=== PATIENT | female | born 1970 | race Caucasian/White ===

== ENCOUNTER 2018-04-30 00:04 | Emergency (ER) | payer OTHER, MEDICAID, SELFPAY ==
[2018-04-30 00:18] VITALS: BP 149/93; PULSE 84; RESP 15; TEMP 36.2; O2SAT 100; BMI 43.5
--- NOTE | 2018-04-30 01:01 | DI.RAD.S_ITS ---
PROCEDURE: XR WRIST RT MIN 3V INDICATIONS: Fall TECHNIQUE: 4 views of the wrist were acquired. COMPARISON: [facility] [place], CR, XR WRIST 3+ VIEWS RIGHT, 12/09/2017, 14:16. Merged With [facility], MR, WRIST WITH CONTRAST, 05/28/2017, 14:49. Merged With [facility], RF, WRIST INJECTION FOR MR/CT, 05/28/2017, 14:28. Merged With [facility], CR, WRIST MINIMUM 3 VIEWS RIGHT, 02/26/2017, 6:49. [facility] [place], CR, XR WRIST 3+ VIEWS RIGHT, 08/30/2017, 7:44. [facility] [place], CR, XR WRIST 3+ VIEWS RIGHT, 10/18/2017, 9:16. Merged With [facility], MR, WRIST WITH CONTRAST, 01/16/2018, 14:24. Merged With [facility], , WRIST INJECTION FOR MR/CT, 01/16/2018, 13:57. FINDINGS: Bones: There is lucency in the radial styloid, which was not visualized on the prior examinations suspicious for nondisplaced fracture. Ossicle adjacent to the ulnar styloid is likely sequelae of old injury. Postsurgical changes with surgical anchor screws in scaphoid and lunate. There is widening of scapholunate interval consistent with scapholunate ligament disrupted. No suspicious bony lesions. Scaphoid view: Scaphoid is deformed but unchanged on the last exam. Soft tissues: No suspicious soft tissue calcifications. IMPRESSION: 1. Possible nondisplaced fracture of the radial styloid with lucency which was not seen on prior examinations. 2. Widening of radiolunate interval consistent with ligamentous disruption. The patient had prior surgical intervention. 3. Chronic deformity of scaphoid. 4. An ossicle adjacent to the ulnar styloid, likely sequelae of old injury. Dictated by: Iona Morse M.D. on 04/30/2018 at 7:31 Approved by: Iona Morse M.D. on 04/30/2018 at 7:38
--- NOTE | 2018-04-30 01:55 | ED_ITS ---
HPI - Fall General Chief Complaint: Fall Stated Complaint: FALL, RIGHT ARM/SHOULDER/BACK INJ History of Present Illness HPI Narrative: HPI 47-year-old female presents for evaluation of distal right forearm/wrist pain that occurred when she slipped and fell striking her right hand/forearm. Patient had a mechanical fall onto water on the floor, patient notes that the Move the water dish causing spelling of water with her subsequent slip and fall. Denies head stike, LOC. Endorses mild gradual onset diffuse back discomfort that began 1+ hours after her fall. ROS with no recent constitutional symptoms. Exam Gen: Pleasant, nontoxic-appearing, resting comfortably. HEENT: NC, AT, PEERL, EOMI. Resp: Unlabored respirations with a normal work of breathing. Card: Extremities warm and well perfused. GI: Non-distended. : Deferred MSK: * Gen - No grossly visible deformities, strength and tone without visually appreciable deficit. * Back - no visible palpable abnormalities, no C, T, L spine tenderness to palpation. * Right Upper Extremity - Acromion, lateral scapula, and clavicle visually normal and non-tender to palpation, no acromioclavicular joint tenderness. Shoulder visually normal without palpable tenderness, effusion, fluctuance, or crepitus, normal warmth to touch, full functional range of motion on flexion, extension, abduction, adduction, internal, and external rotation, sensation intact to touch over the deltoid muscle. Upper arm visually normal without tenderness to palpation over the length of the humerus, all muscle compartments soft and non-tender to palpation, fluctuance or crepitus, normal warmth to touch. Elbow visually normal, without palpable tenderness, effusion, fluctuance , or crepitus, normal warmth to touch, full functional range of motion on flexion, extension, supination, and pronation. Forearm with well-healed prior surgical scars in the distal form, otherwise visually normal without tenderness to palpation over the length of the radius and ulna, all muscle compartments soft and non-tender to palpation, fluctuance or crepitus, normal warmth to touch. Wrist visually normal with snuff box sparing mild diffuse tenderness but without palpable abnormalities, no point tenderness on the Hamate, negative Hook of hamate pull test, no effusion, fluctuance, or crepitus, normal warmth to touch, full functional range of motion on flexion, extension, pronation, supination, or radial or ulnar deviation, 2+ radial pulse.Hand visually normal without palpable tenderness, effusion, fluctuance, or crepitus, normal warmth to touch, muscle compartments are soft and non-tender to palpation. Fingers visually normal without palpable tenderness, effusion, fluctuance, or crepitus, normal warmth to touch, full functional range of motion on flexion, extension, abduction, adduction of all fingers as well as opposition of the thumb, sensation intact to touch on all fingers, 2 second capillary refill on each finger. Neuro: AO x 3, no facial asymmetry, vision and hearing WNL. Heme/Lymph: Deferred Skin: Normal color with no visible lesions (other than noted above). Psych: Mood and affect appropriate. XR R Wrist: no acute traumatic abnormality. Radiologist read pending. MDM Previous chart, nursing note, and vitals reviewed. A: 47-year-old female presents for evaluation of distal right forearm/wrist pain that occurred when she slipped and fell striking her right hand/forearm. DDx & Evaluation: exam without evidence of CMS impairment, crystalline arthropathy, infectious arthropathy, imaging without evidence of fracture, no snuff box tenderness to palpation. Suspect contusion. Instructed to use OTC analgesics, splint for comfort offered. Impression: right wrist pain (please reference below for remainder of encounter information) Related Data Home Medications Medication Instructions Recorded Confirmed naproxen sodium [Aleve] 220 mg PO PRN #0 03/05/13 ibuprofen 600 mg PO TID #0 02/26/17 Previous Rx's Medication Instructions Recorded albuterol sulfate [Ventolin HFA] 0 INH Q4H #8 gm 12/11/16 azithromycin [Zithromax] 0 PO QDAY #1 packet 02/14/17 prednisone 0 PO QDAY #7 tab 12/11/16 hydroxyzine pamoate [Vistaril] 25 - 50 mg PO Q4HP PRN #60 cap 07/22/17 oxycodone-acetaminophen [Percocet] 1 - 2 tab PO Q4HP PRN #60 tab 07/22/17 Allergies Allergy/AdvReac Type Severity Reaction Status Date / Time erythromycin base Allergy Unknown HIVES Verified 04/30/18 00:18 [ERYTHROMYCIN BASE] latex [LATEX] Allergy Unknown RASH Verified 04/30/18 00:18 shellfish derived Allergy Unknown HIVES Verified 04/30/18 00:18 [SHELLFISH DERIVED] Sulfa (Sulfonamide Allergy Unknown RASH Verified 04/30/18 00:18 Antibiotics) [SULFA (SULFONAMIDE ANTIBIOTICS)] Exam Initial Vital Signs Initial Vital Signs: Vital Signs Temperature 97.1 F L 04/30/18 00:18 Pulse Rate 84 04/30/18 00:18 Respiratory Rate 15 04/30/18 00:18 Blood Pressure 149/93 H 04/30/18 00:18 Pulse Oximetry 100 04/30/18 00:18 Course Orders Ordered: ED Orders 04/30/18 01:01 XR wrist RT min 3V Stat Vital Signs - 8 hr 04/30/18 00:18 Temperature 97.1 F L Pulse Rate 84 Respiratory Rate 15 Blood Pressure 149/93 H Pulse Oximetry 100 Discharge Plan Departure Prescriptions: No Action naproxen sodium [Aleve] 220 MG tablet 220 mg PO PRN Qty: 0 RF: 0 azithromycin [Zithromax] 250 MG tablet PO QDAY Qty: 1 RF: 0 prednisone 20 MG tablet PO QDAY Qty: 7 RF: 0 albuterol sulfate [Ventolin HFA] 90 MCG/PUFF HFA aerosol inhaler INH Q4H Qty: 8 RF: 0 ibuprofen 600 MG tablet 600 mg PO TID Qty: 0 RF: 0 oxycodone-acetaminophen [Percocet] 5 MG/325 MG tablet 1 - 2 tab PO Q4HP PRNQty: 60 RF: 0 hydroxyzine pamoate [Vistaril] 25 MG capsule 25 - 50 mg PO Q4HP PRNQty: 60 RF: 0
--- NOTE | 2018-04-30 02:23 | PC.NURSE ---
Patient has a wrist splint at home;
[2018-04-30 02:32] VITALS: BP 148/64; PULSE 74; RESP 16; TEMP 36.7; O2SAT 98
== END 2018-04-30 02:33 | disposition home or self-care (01) ==
LOC: ED 02:26
PROVIDERS: Emergency Provider Emergency Medicine; Family Provider Orthopaedic Surgery; PCP Orthopaedic Surgery
DX: M25.531 Pain in right wrist (principal); W01.0XXA Fall on same level from slipping, tripping and stumbling without subsequent striking against object, initial encounter
CPT/HCPCS: 73110; 99283

== ENCOUNTER → 2018-09-03 11:00 | Outpatient (CLI) | payer OTHER, MEDICAID, SELFPAY | PROVIDERS: Family Provider Orthopaedic Surgery; PCP Orthopaedic Surgery | DX: Z23 Encounter for immunization (principal) | CPT/HCPCS: 90471; 90686 ==

== ENCOUNTER → 2019-05-25 13:07 | Outpatient (CLI) | payer OTHER, SELFPAY ==
--- NOTE | 2019-05-25 13:08 | DI.US.S_ITS ---
PROCEDURE: US PERIPH VENOUS LOW EXTREM LT INDICATIONS: Rule out DVT TECHNIQUE: Real-time imaging, as well as color and pulse Doppler interrogation, were performed of the lower extremity deep veins from the inguinal ligament to the popliteal fossa. COMPARISON: None. FINDINGS: The common femoral, femoral and popliteal veins are normally compressible, and free of intraluminal thrombus. Color and pulse Doppler demonstrate normal phasic intraluminal flow. There is normal augmentation response to distal compression maneuver. Soft tissue swelling in the left ankle. IMPRESSION: No evidence for deep venous thrombosis in the left lower extremity. Dictated by: Iona Morse M.D. on 05/25/2019 at 14:39 Approved by: Iona Morse M.D. on 05/25/2019 at 14:40
== END ==
PROVIDERS: Family Provider Orthopaedic Surgery; PCP Nurse Practitioner; Visit Provider Nurse Practitioner
DX: I82.402 Acute embolism and thrombosis of unspecified deep veins of left lower extremity (principal); E78.5 Hyperlipidemia, unspecified; I10 Essential (primary) hypertension; E66.01 Morbid (severe) obesity due to excess calories
CPT/HCPCS: 93971

== ENCOUNTER → 2019-06-18 16:22 | Outpatient (CLI) | payer OTHER, SELFPAY | PROVIDERS: Family Provider Orthopaedic Surgery; PCP Nurse Practitioner; Visit Provider Nurse Practitioner | DX: R30.0 Dysuria (principal) | CPT/HCPCS: 87077; 87086; 87147 ==

== ENCOUNTER → 2019-07-13 13:11 | Outpatient (CLI) | payer OTHER, SELFPAY ==
--- NOTE | 2019-07-13 13:36 | DI.MG.S_ITS ---
BILATERAL DIGITAL SCREENING MAMMOGRAM 3D/2D WITH CAD: 07/13/2019 CLINICAL: Routine screening. Baseline exam. Family history of breast cancer. No prior exams were available for comparison. There are scattered fibroglandular elements in both breasts. Current study was also evaluated with a Computer Aided Detection (CAD) system. There is an oval equal density mass with a circumscribed margin in the right breast at 11 o'clock posterior depth. There also is an irregular equal density focal asymmetry with an indistinct margin in the right breast at 10 o'clock middle depth. No other significant masses, calcifications, or other findings are seen in either breast. IMPRESSION: INCOMPLETE: NEEDS ADDITIONAL IMAGING EVALUATION The oval equal density mass in the right breast at 11 o'clock posterior depth is indeterminate. Mediolateral and spot compression views as well as additional views with possible ultrasound are recommended. The irregular equal density focal asymmetry in the right breast at 10 o'clock middle depth is indeterminate. Mediolateral and spot compression views as well as additional views with possible ultrasound are recommended. This exam was interpreted at Station ID: [id number]. NOTE: For mammograms, a report in lay terms will be sent to the patient. Approximately 15% of breast malignancies will not be visualized mammographically. In the management of a palpable breast mass, a negative mammogram must not discourage biopsy of a clinically suspicious lesion. Electronically Signed By: Anshul parmar/svetlana:07/14/2019 08:12:40 letter sent: Additional Imaging Needed ACR BI-RADS Category 0: Incomplete [id number]
== END ==
PROVIDERS: Family Provider Orthopaedic Surgery; PCP Nurse Practitioner; Visit Provider Nurse Practitioner
DX: Z12.31 Encounter for screening mammogram for malignant neoplasm of breast (principal); Z80.3 Family history of malignant neoplasm of breast
CPT/HCPCS: 77063; 77067

== ENCOUNTER → 2019-07-21 14:43 | Outpatient (CLI) | payer OTHER, SELFPAY ==
--- NOTE | 2019-07-21 14:44 | DI.RAD.S_ITS ---
PROCEDURE: XR WRIST LT MIN 3V INDICATIONS: left wrist pain after fall TECHNIQUE: Fall. views of the wrist were acquired. COMPARISON: None. FINDINGS: Bones: No fractures or dislocations. No suspicious bony lesions. There is ulnar negative variant. Mild degenerative joint disease at the radiocarpal joint. Scaphoid view: Scaphoid is intact. Soft tissues: No suspicious soft tissue calcifications. IMPRESSION: 1. Mild degenerative joint disease. 2. Ulnar negative variant, which is a risk factor for ligamentous instability. If pain persists, wrist MR arthrogram could be obtained to assess ligamentous injuries. Dictated by: Iona Morse M.D. on 07/21/2019 at 18:31 Approved by: Iona Morse M.D. on 07/21/2019 at 18:32
--- NOTE | 2019-07-21 14:44 | DI.RAD.S_ITS ---
PROCEDURE: XR FOREARM RT 2V INDICATIONS: left wrist pain TECHNIQUE: 2 views of the forearm were acquired. COMPARISON: [facility], CR, XR WRIST LT MIN 3V, 07/21/2019, 14:49. FINDINGS: Bones: No fractures or dislocations. No suspicious bony lesions. Note is made of ulnar negative variant. Soft tissues: No suspicious soft tissue calcifications or masses. IMPRESSION: Ulnar negative variant. No acute osseous abnormalities. Dictated by: Iona Morse M.D. on 07/21/2019 at 18:29 Approved by: Iona Morse M.D. on 07/21/2019 at 18:31
== END ==
PROVIDERS: PCP Nurse Practitioner; Visit Provider Nurse Practitioner Family
DX: S69.92XA Unspecified injury of left wrist, hand and finger(s), initial encounter (principal); M25.532 Pain in left wrist; M19.032 Primary osteoarthritis, left wrist; W19.XXXA Unspecified fall, initial encounter
CPT/HCPCS: 73090; 73110

== ENCOUNTER → 2019-08-05 08:30 | Outpatient (CLI) | payer OTHER, SELFPAY ==
--- NOTE | 2019-08-05 08:33 | DI.US.S_ITS ---
LIMITED ULTRASOUND OF RIGHT BREAST AND AXILLA: 08/05/2019 CLINICAL: Patient returns today to evaluate a density in the right breast. Comparison is made to exams dated: 08/05/2019 mammogram and 07/13/2019 mammogram - [facility]. Color flow and real-time ultrasound of the right breast 9-10 o'clock, and axilla regions were performed on the areas of interest. There is a 1 cm x 0.5 cm x 0.8 cm oval mass with a circumscribed margin in the right breast at 9 o'clock posterior depth. This oval mass is hypoechoic. This correlates with mammography findings. Color flow imaging demonstrates that there is an adjacent vascularity. There also is a 0.5 cm x 0.3 cm x 0.6 cm oval mass with a circumscribed margin in the right breast at 9 o'clock middle depth. This oval mass is hypoechoic with a well-defined boundary. Color flow imaging demonstrates that there is no vascularity present. No significant abnormalities were seen sonographically in the right axilla. IMPRESSION: SUSPICIOUS OF MALIGNANCY The 1 cm x 0.5 cm x 0.8 cm oval mass in the right breast at 9 o'clock posterior depth is at a low suspicion for malignancy. An ultrasound guided biopsy is recommended. The 0.5 cm x 0.3 cm x 0.6 cm oval mass in the right breast at 9 o'clock middle depth is at a low suspicion for malignancy. An ultrasound guided biopsy is recommended. The findings were discussed with the patient at the conclusion of the study by Dr. Patino. This exam was interpreted at Station ID: [id number]. Electronically Signed By: Anshul parmar/:08/05/2019 12:05:20 letter sent: Biopsy Required Ultrasound BI-RADS: 4a Low suspicion for malignancy
--- NOTE | 2019-08-05 08:33 | DI.MG.S_ITS ---
UNILATERAL RIGHT DIGITAL DIAGNOSTIC MAMMOGRAM 3D/2D WITH ADDITIONAL VIEWS: 08/05/2019 CLINICAL: Additional evaluation requested from prior study. Comparison is [facility]. There are scattered fibroglandular elements in right breast. There is a 1.1 cm oval equal density mass with an indistinct and circumscribed margin in the right breast at 11 o'clock posterior depth. No other significant masses or calcifications are seen in the breast. IMPRESSION: INCOMPLETE: NEEDS ADDITIONAL IMAGING EVALUATION The 1.1 cm oval equal density mass in the right breast is indeterminate. An ultrasound is recommended. This exam was interpreted at Station ID: [id number]. NOTE: For mammograms, a report in lay terms will be sent to the patient. Approximately 15% of breast malignancies will not be visualized mammographically. In the management of a palpable breast mass, a negative mammogram must not discourage biopsy of a clinically suspicious lesion. Electronically Signed By: Anshul parmar/svetlana:08/05/2019 09:18:58 ACR BI-RADS Category 0: Incomplete [id number]
[2019-08-05 09:08] LABS: Hematocrit 38.7 % (36-46); Hemoglobin 12.8 g/dL (12.0-16.0); Mean Corpuscular Hemoglobin 25.7 PG (26-34); Mean Corpuscular Volume 77.7 fL (80-100); Platelet Count 354 X10^3/uL (150-400); Red Blood Cell Count 4.98 X10^6/uL (4.0-5.2); Red Cell Distribution Width 15.8 % (11.6-14.8); White Blood Cell Count 7.1 X10^3/uL (4.5-11.0)
[2019-08-05 09:19] LABS: Alanine Aminotransferase 15 IU/L (9-52); Albumin 4.2 g/dL (3.5-5.0); Albumin Globulin Ratio 1.2 (1.0-2.8); Alkaline Phosphatase 95 U/L (38-126); Aspartate Aminotransferase 25 IU/L (14-36); Bilirubin Total 0.4 mg/dL (0.2-1.3); Blood Urea Nitrogen 14 mg/dL (7-17); Calcium 9.4 mg/dL (8.4-10.2); Carbon Dioxide 28 mmol/L (22-32); Chloride 104 mmol/L (98-107); Cholesterol 217 mg/dL (140-199); Estimated Glomerular Filt Rate > 60.0 mL/min (>60); Globulin 3.4 g/dL (1.7-4.1); Glucose 92 mg/dL (70-100); HDL Cholesterol 45 mg/dL (40-60); HEMOLYSIS < 15 (0-50); LDL Cholesterol Calculated 133 mg/dL (<100); Potassium 4.6 mmol/L (3.4-5.1); Sodium 141 mmol/L (137-145); Total Protein 7.6 g/dL (6.3-8.2); Triglycerides 194 mg/dL (35-150)
[2019-08-05 10:19] LABS: TSH w/ Reflex to FT4 4.71 uIU/mL (0.47-4.68)
[2019-08-05 11:01] LABS: Neutrophils Absolute Manual 4686 /uL (3000-5900); Total Cells Counted 100
[2019-08-05 11:03] LABS: Anisocytosis 1+
[2019-08-05 11:43] LABS: Free T4, Direct Thyroxine 1.31 ng/dL (0.78-2.19)
== END ==
PROVIDERS: PCP Nurse Practitioner; Visit Provider Nurse Practitioner
DX: R92.8 Other abnormal and inconclusive findings on diagnostic imaging of breast (principal); N63.11 Unspecified lump in the right breast, upper outer quadrant; E78.5 Hyperlipidemia, unspecified; I10 Essential (primary) hypertension; E66.01 Morbid (severe) obesity due to excess calories
CPT/HCPCS: 36415; 76642; 77065; 80053; 80061; 84439; 84443; 85025; G0279

== ENCOUNTER → 2019-08-11 17:16 | Outpatient (CLI) | payer OTHER, SELFPAY ==
--- NOTE | 2019-08-11 17:20 | DI.RAD.S_ITS ---
PROCEDURE: XR FOOT RT MIN 3V INDICATIONS: s/p GLF 07/26/2019 rule out occult fracture history of osteop TECHNIQUE: 3 views of the foot were acquired. COMPARISON: Same day at right ankle radiographs. [facility], , FOOT 3V LEFT, 12/18/2013, 13:33. FINDINGS: Bones: No fractures or dislocations. No suspicious bony lesions. Soft tissues: No tibiotalar joint effusion. Achilles tendon appears normal. IMPRESSION: No fracture or dislocation. Dictated by: Kash Arredondo M.D. on 08/12/2019 at 8:46 Approved by: Kash Arredondo M.D. on 08/12/2019 at 8:50
--- NOTE | 2019-08-11 17:20 | DI.RAD.S_ITS ---
PROCEDURE: XR ANKLE RT MIN 3V INDICATIONS: s/p GLF 07/26/2019 rule out occult fracture history of osteop TECHNIQUE: 3 views of the ankle were acquired. COMPARISON: Same day right foot radiographs. [facility], , ANKLE 3 VIEWS LEFT, 12/18/2013, 13:33. FINDINGS: Bones: No fractures or dislocations. Ankle mortise is normally aligned. No suspicious bony lesions. Soft tissues: No tibiotalar joint effusion. Achilles tendon appears normal. IMPRESSION: No acute osseous abnormality. Dictated by: Kash Arredondo M.D. on 08/12/2019 at 9:01 Approved by: Kash Arredondo M.D. on 08/12/2019 at 9:02
== END ==
PROVIDERS: PCP Nurse Practitioner; Visit Provider Nurse Practitioner
DX: M25.571 Pain in right ankle and joints of right foot (principal); M79.671 Pain in right foot; Q78.2 Osteopetrosis
CPT/HCPCS: 73610; 73630

== ENCOUNTER → 2019-08-14 06:40 | Outpatient (CLI) | payer OTHER, SELFPAY ==
--- NOTE | 2019-08-14 06:41 | DI.MRI.S_ITS ---
PROCEDURE: MR ANKLE RT WO CON INDICATIONS: right foot and ankle pain with edema TECHNIQUE: Noncontrast sagittal T1 spin echo and T2 fast spin echo with fat saturation, axial proton density fast spin echo and T2 fast spin echo with fat saturation, coronal T1 spin echo and T2 fast spin echo with fat saturation through the ankle/hindfoot. COMPARISON: [facility], CR, XR FOOT RT MIN 3V, 08/11/2019, 17:17. [facility], CR, XR ANKLE RT MIN 3V, 08/11/2019, 17:17. FINDINGS: Image quality: Excellent. Bones and joints: Mild soft tissue edema and swelling around ankle joint is seen. No bone marrow contusions or fractures. No hindfoot coalitions. No osteochondral injuries of the talar dome. No pathologic joint effusions. Medial structures: There is thickening of distal posterior tibialis tendon at the level of talonavicular joint with moderate amount of fluid distending tendon sheaths could suggestive of tenosynovitis. The flexor digitorum longus, and flexor hallucis longus tendons are intact. The posterior tibial neurovascular bundle appears normal within the tarsal tunnel, without extrinsic mass effect. Thickening of the superficial and deep fibers of deltoid ligament is seen suggestive of ligament sprain/low-grade partial-thickness tear.. The spring ligament components (superomedial calcaneonavicular, medioplantar oblique calcaneonavicular, and inferoplantar longitudinal ligaments) are intact. Lateral structures: The anterior talofibular ligament is mildly thickened this suggests ligament sprain. The calcaneofibular, and posterior talofibular ligaments appear intact. More superiorly, the anterior and posterior tibiofibular ligaments appear thickened with heterogeneous internal signal consistent with moderate grade partial-thickness tear. The tibiofibular syndesmosis is widened and measures up to 5 mm. The peroneus longus and brevis tendons demonstrate normal location and morphology. Adjacent bony peroneal tubercle and retrotrochlear prominence are normal in size. The sinus tarsi demonstrates normal fatty signal, without edema, fibrosis, or cyst formation. Visualized sinus tarsi components (cervical ligament, interosseous talocalcaneal ligament, roots of the inferior extensor retinaculum) appear normal. The calcaneonavicular and calcaneocuboid components of the bifurcate ligament appear intact. The dorsal calcaneocuboid ligament appears intact. Anterior structures: The tibialis anterior, extensor hallucis longus, and extensor digitorum longus tendons appear intact. The dorsal talonavicular ligament appears intact. Posterior and plantar structures: Mildly thickened the distal Achilles tendon is seen, which may represent mild Achilles tendinosis. No evidence of Achilles tendon tear.. Medial and lateral bands of the plantar fascia are of normal thickness. No abductor digiti quinti muscle atrophy to suggest Jackson neuropathy. IMPRESSION: 1. Soft tissue swelling around ankle joint. No marrow edema. No fracture or dislocation. 2. Widening of distal tibiofibular syndesmosis with suggestion of partial thickness involving anterior and posterior tibiofibular ligaments. 3. Sprain of the anterior talofibular ligament. Sprain/low-grade partial-thickness tear involving deltoid ligament. 4. Suggestion of tenosynovitis involving distal posterior tibialis tendon at the level of talonavicular joint. 5. Mild distal Achilles tendinosis. No Achilles tendon rupture. Dictated by: Leonides Coulter M.D. on 08/14/2019 at 9:54 Approved by: Leonides Coulter M.D. on 08/14/2019 at 10:30
== END ==
PROVIDERS: PCP Nurse Practitioner; Visit Provider Nurse Practitioner
DX: M25.571 Pain in right ankle and joints of right foot (principal); M79.671 Pain in right foot; S93.491A Sprain of other ligament of right ankle, initial encounter; S93.421A Sprain of deltoid ligament of right ankle, initial encounter; M79.89 Other specified soft tissue disorders
CPT/HCPCS: 73721

== ENCOUNTER → 2019-08-20 12:12 | Outpatient (CLI) | payer OTHER, SELFPAY | PROVIDERS: PCP Nurse Practitioner | DX: Z23 Encounter for immunization (principal) | CPT/HCPCS: 90471; 90686 ==

== ENCOUNTER → 2019-08-28 13:39 | Outpatient (CLI) | payer OTHER, SELFPAY ==
--- NOTE | 2019-08-28 | DI.MG.S_ITS ---
UNILATERAL RIGHT DIGITAL DIAGNOSTIC MAMMOGRAM POST-NEEDLE BIOPSY: 08/28/2019 CLINICAL: Right breast mass. Comparison is made to exams dated: 08/05/2019 mammogram and 07/13/2019 mammogram - [facility]. There are scattered fibroglandular elements in right breast. There is a marker clip in the appropriate position in the right breast at 9 o'clock middle depth. This marker clip placement is at the biopsy site. There also is a marker clip in the appropriate position in the right breast at 10 o'clock middle depth. This marker clip placement is at the biopsy site. IMPRESSION: POST PROCEDURE MAMMOGRAM FOR MARKER PLACEMENT There was a successful marker clip placement in the right breast at 9 o'clock middle depth. There was a successful marker clip placement in the right breast at 10 o'clock middle depth. This exam was interpreted at Station ID: [id number]. NOTE: For mammograms, a report in lay terms will be sent to the patient. Approximately 15% of breast malignancies will not be visualized mammographically. In the management of a palpable breast mass, a negative mammogram must not discourage biopsy of a clinically suspicious lesion. Electronically Signed By: Francisco cerrato/:08/28/2019 16:10:35 ACR BI-RADS Category Post-procedure mammogram for marker placement
--- NOTE | 2019-08-28 | PATH_ITS ---
[facility] Accession Number: [id number] . 01 Material submitted: . PART A: breast - RIGHT BREAST PART B: breast - RIGHT BREAST . 01 Clinical history: . A: MASS 9:30 3CM FN B: MASS 9:30 7CM FN . 01 Diagnosis: A. Right Breast, Mass at 9:30, 3 cm from Nipple, Biopsy: Fibrocytic change including apocrine cystic metaplasia, usual ductal hyperplasia, columnar cell change/hyperplasia, and a small intraductal papilloma (1 mm). Focal microcalcifications are present. Negative for atypia, carcinoma in situ, and malignancy. . B. Right Breast, Mass at 9:30, 7 cm from Nipple, Biopsy: Fibroadenoma. MRV 08/31/2019 2346 Local . 01 Comment: Dr. Pak reviewed part B and agrees with the diagnosis. . 01 Electronically signed: . Edna Ortiz MD, Pathologist NPI- [id number] . 01 Gross description: . Received two formalin-filled containers, both labeled with the patient's name: . A. In a container labeled #1, the specimen is received with a plastic filter in container, sample loose in container and consists of multiple yellow-rachel portions of tissue which range in size from 0.1 x 0.1 x 0.1 cm to 1.0 x 0.3 x 0.3 cm. The specimen is filtered, wrapped, and entirely submitted in cassette A. B. In a container labeled #2, the specimen is received with a plastic filter in container, sample loose in container and consists of multiple yellow-rachel, rough, cylindrical-shaped portions of tissue which range in size from 0.2 x 0.2 x 0.2 cm to 1.6 x 0.2 x 0.2 cm. The specimen is entirely submitted in cassette B. . Collection date: 08/28/2019. Collection time per container: #1 - 2:27 p.m.; #2 - 2:39 p.m. Total fixation time: Approximately 34 hours. ([id number]) /SOHA 08/29/2019 0530 Local . 01 Microscopic: . Deeper levels examined on parts A and B. . 01 Pathologist provided ICD-10: D24.1 . 01 CPT . 860445, [id number] Performed at: 01 [facility] [address] [place] [address] [address] [facility], [place], [place] [id number] MD Anshul Jones MD Phone: [phone]
--- NOTE | 2019-08-28 13:40 | DI.US.S_ITS ---
PROCEDURE: US BX BREAST PERC W VAC DEVICE COMPARISON: None. INDICATIONS: RIGHT BREAST MASS X 2 FINDINGS: IMPRESSION: Dictated by: Francisco Patino M.D. on 08/28/2019 at 16:02 Approved by: Francisco Patino M.D. on 09/14/2019 at 12:32
== END ==
PROVIDERS: PCP Nurse Practitioner; Visit Provider Nurse Practitioner
DX: D24.1 Benign neoplasm of right breast (principal); N60.81 Other benign mammary dysplasias of right breast
CPT/HCPCS: 19083; 19084; 77065

== ENCOUNTER → 2019-12-17 12:29 | Outpatient (CLI) | payer OTHER, SELFPAY ==
[2019-12-17 15:34] LABS: Free T3, Triiodothyronine Free 4.15 pg/mL (2.77-5.27)
[2019-12-17 15:47] LABS: Thyroid Stimulating Hormone 5.72 uIU/mL (0.47-4.68)
== END ==
PROVIDERS: PCP Nurse Practitioner; Referring Provider Nurse Practitioner; Visit Provider Nurse Practitioner
DX: F41.8 Other specified anxiety disorders (principal); F43.10 Post-traumatic stress disorder, unspecified
CPT/HCPCS: 36415; 84439; 84443; 84481

== ENCOUNTER → 2020-07-30 11:56 | Outpatient (CLI) | payer OTHER, SELFPAY | PROVIDERS: PCP Nurse Practitioner; Referring Provider Internal Medicine; Visit Provider Internal Medicine | DX: Z23 Encounter for immunization (principal) | CPT/HCPCS: 90471; 90686 ==

== ENCOUNTER → 2020-08-02 15:29 | Outpatient (CLI) | payer OTHER, SELFPAY ==
[2020-08-04 14:24] LABS: COVID19 Sendout Not Detected (Not Detect)
== END ==
PROVIDERS: PCP Nurse Practitioner; Visit Provider Physician Assistant
DX: Z11.59 Encounter for screening for other viral diseases (principal)
CPT/HCPCS: 87635

== ENCOUNTER → 2020-09-20 06:37 | Outpatient (CLI) | payer OTHER, SELFPAY ==
--- NOTE | 2020-09-20 06:38 | DI.MRI.S_ITS ---
PROCEDURE: MR KNEE LT WO CON INDICATIONS: Rule out internal derangement TECHNIQUE: Noncontrast sagittal PD fast spin echo and T2 fast spin echo with fat saturation, sagittal 3-D FLASH with fat saturation; coronal T1 spin echo and PD fast spin echo with fat saturation, and axial PD fast spin echo with fat saturation through the knee. COMPARISON: None. FINDINGS: Image quality: Excellent. Menisci: The medial and lateral menisci demonstrate normal morphology and internal signal. There is no meniscal extrusion. Cruciate ligaments: The anterior and posterior cruciate ligaments appear intact. Medial structures: The medial collateral ligament appears intact. The semimembranosus tendon insertions and meniscocapsular junction appear intact. Visualized portions of the pes anserinus tendons appear normal. No abnormal bursal fluid. Lateral structures: The lateral collateral ligament, long and short heads of the biceps femoris tendon appear intact. The popliteus tendon appears intact. No signs of posterolateral corner injury. Iliotibial band appears normal. Anterior structures: The quadriceps and patellar tendons appear intact. 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 The tibial tubercle-trochlear groove distance is 1.5 cm. No edema in the infrapatellar fat pad. Bones and cartilage: No bone marrow contusions or acute fractures. Nonspecific cellular marrow is seen throughout the visualized osseous metaphyses, most likely related to red marrow reconversion. There is mild partial-thickness cartilage thinning in the weight-bearing portion of the medial femorotibial compartment. Focal full-thickness cartilage loss is seen in the central to posterior weight-bearing portion of the lateral femoral condyle measuring 12 x 5 mm. Focal high-grade cartilage loss is seen at the median ridge of the patella measuring approximately 4 x 4 mm. Small tricompartmental marginal osteophytes are present. Joint space: There is medium sized joint effusion. A moderate medial popliteal cyst is present. There is mild nonspecific prepatellar soft tissue edema. Normal appearing synovial plicae are incidentally noted. IMPRESSION: 1. No acute trabecular bone injury. The cruciate and collateral ligaments are intact. There is no meniscal tear. 2. Focal full-thickness cartilage loss in the central to posterior weight-bearing portion of the lateral femoral condyle. Additional small focus of high-grade cartilage loss is seen in the median ridge of the patella. There is mild grade 2 cartilage thinning in the weight-bearing portion of the medial compartment. Tiny tricompartmental marginal osteophytes are present. 3. Moderate joint effusion. Moderate medial popliteal cyst. 4. Areas of cellular marrow in the visualized osseous metastases are most likely related to red marrow reconversion. Recommend clinical correlation for possible anemia. Dictated by: Kevin Wright M.D. on 09/20/2020 at 10:46 Approved by: Kevin Wright M.D. on 09/20/2020 at 11:04
== END ==
PROVIDERS: PCP Nurse Practitioner; Referring Provider Physician Assistant; Visit Provider Physician Assistant
DX: S89.92XA Unspecified injury of left lower leg, initial encounter (principal); M25.461 Effusion, right knee; X58.XXXA Exposure to other specified factors, initial encounter
CPT/HCPCS: 73721

== ENCOUNTER → 2020-11-04 12:01 | Outpatient (CLI) | payer OTHER, SELFPAY ==
[2020-11-04] MEDS: COVID-19 VACC(MODERNA-1)/PF 100 MCG/0.5 ML VIAL IM (12:10)
== END ==
PROVIDERS: PCP Nurse Practitioner; Visit Provider Internal Medicine
DX: Z23 Encounter for immunization (principal)
CPT/HCPCS: 0011A; 91301

== ENCOUNTER → 2020-11-30 10:03 | Outpatient (CLI) | payer OTHER, SELFPAY ==
[2020-11-30 10:21] LABS: Add Manual Diff / Slide Review NO; Basophils Absolute Auto 0 /uL (0-100); Basophils Percent Auto 0.4 % (0-2); Eosinophils Absolute Auto 400 /uL (0-450); Hematocrit 38.3 % (36-46); Hemoglobin 12.5 g/dL (12.0-16.0); Lymphocytes Absolute Auto 2400 /uL (1100-4500); Lymphocytes Percent Auto 29.1 % (25-40); Mean Corpuscular HGB Conc 32.6 % (30-36); Mean Corpuscular Hemoglobin 24.2 PG (26-34); Mean Corpuscular Volume 74.2 fL (80-100); Monocytes Absolute Auto 600 /uL (0-900); Monocytes Percent Auto 7.9 % (3-14); Neutrophils Absolute Auto 4700 /uL (1500-7000); Neutrophils Percent Auto 57.6 % (50-75); Platelet Count 406 X10^3/uL (150-400); Red Blood Cell Count 5.16 X10^6/uL (4.0-5.2); Red Cell Distribution Width 16.5 % (11.6-14.8); White Blood Cell Count 8.2 X10^3/uL (4.5-11.0)
[2020-11-30 10:32] LABS: Alanine Aminotransferase 19 IU/L (<35); Albumin 4.1 g/dL (3.5-5.0); Albumin Globulin Ratio 1.4 (1.0-2.8); Alkaline Phosphatase 96 U/L (38-126); Aspartate Aminotransferase 26 IU/L (14-36); BUN Creatinine Ratio 18.9 (6-22); Bilirubin Total 0.3 mg/dL (0.2-1.3); Blood Urea Nitrogen 14 mg/dL (7-17); Calcium 9.3 mg/dL (8.4-10.2); Carbon Dioxide 26 mmol/L (22-32); Chloride 104 mmol/L (98-107); Estimated Glomerular Filt Rate > 60.0 mL/min (>60); Glucose 134 mg/dL (70-100); HEMOLYSIS < 15 (0-50); Lipase 90 U/L (23-300); Potassium 4.1 mmol/L (3.4-5.1); Sodium 135 mmol/L (137-145); Total Protein 7.1 g/dL (6.3-8.2)
== END ==
PROVIDERS: PCP Nurse Practitioner; Referring Provider Nurse Practitioner Family; Visit Provider Nurse Practitioner Family
DX: R11.0 Nausea (principal)
CPT/HCPCS: 36415; 80053; 83690; 85025

== ENCOUNTER → 2020-11-30 10:59 | Outpatient (CLI) | payer OTHER, SELFPAY ==
--- NOTE | 2020-11-30 11:01 | DI.RAD.S_ITS ---
PROCEDURE: XR RIBS RT MIN 3V W CXR 1V INDICATIONS: right rib pain TECHNIQUE: 2 views of the right ribs were acquired, along with a single view chest. COMPARISON: None. FINDINGS: Surgical changes and devices: Surgical clips are seen in right axilla/right breast. Bones and chest wall: No fractures or dislocations. No suspicious bony lesions. Overlying soft tissues appear unremarkable. Lungs and pleura: No pleural effusions or pneumothorax. Lungs appear clear. Mediastinum: Mediastinal contours appear normal. Heart size is normal. IMPRESSION: No gross displaced right rib fracture is seen. No suspicious rib lesion. No acute cardiopulmonary pathology. Dictated by: Leonides Coulter M.D. on 11/30/2020 at 11:19 Approved by: Leonides Coulter M.D. on 11/30/2020 at 11:21
== END ==
PROVIDERS: PCP Nurse Practitioner; Referring Provider Nurse Practitioner Family; Visit Provider Nurse Practitioner Family
DX: R07.81 Pleurodynia (principal); R11.0 Nausea
CPT/HCPCS: 36415; 71101; 80053; 83690; 85025

== ENCOUNTER → 2020-12-01 08:48 | Outpatient (CLI) | payer OTHER, SELFPAY ==
[2020-12-01] MEDS: COVID-19 VACC #2, MRNA(MOD) 100 MCG/0.5 ML VIAL IM (08:54)
== END ==
PROVIDERS: PCP Nurse Practitioner; Visit Provider Internal Medicine
DX: Z23 Encounter for immunization (principal)
CPT/HCPCS: 0012A; 91301